=== PATIENT | male | born 1965 | race Caucasian/White ===

== ENCOUNTER 2018-05-28 04:32 | Observation (INO) ==
[2018-05-28] MEDS ORDERED: Ipratropium/Albuterol Neb 3 ML IH ONE (04:46)
[2018-05-28] MEDS ORDERED: Isovue-370 500 ML INFUS..BTL IV ONE (04:46)
[2018-05-28 05:17] LABS: Basophils % 0.4 %; Eosinophils # 0.2 K/mcL (0.0-0.6); Eosinophils % 2.5 %; Hemoglobin 15.9 g/dL (12.9-16.9); Immature Granulocytes % 0.5 % (0-4); Lymphocytes % 26.2 %; Mean Corpuscular Hemoglobin 32.5 pg (28.0-33.3); Mean Corpuscular Volume 87.9 fL (83.0-100.0); Mean Platelet Volume 10.4 fL (9.4-12.4); Monocytes # 0.7 K/mcL (0.0-1.3); Monocytes % 9.6 %; Neutrophils # 4.6 K/mcL (1.6-8.9); Platelet Count 177 K/mcL (140-400); Red Blood Count 4.89 M/mcL (4.19-5.50); Red Cell Distribution Width 12.9 % (11.5-14.5); Segmented Neutrophils % 60.8 %
--- NOTE | 2018-05-28 05:21 | Emergency Department Note ---
Disposition Clinical Impression: Elevated troponin, Cough with hemoptysis, Hypoxemia Dyspnea Qualifiers: Dyspnea type: unspecified Qualified Code(s): R06.00 - Dyspnea, unspecified Disposition: Admitted As Inpatient Condition: Fair Referrals: Grey Quispe DO [Primary Care Provider] - Forms: ED Satisfaction Letter Time of Disposition: 07:44 General Adult HPI - General Chief complaint: ED Shortness of Breath/Dyspnea Stated complaint: SoB Time Seen by Provider: 05/28/18 04:37 Source: EMS Limitations: no limitations - History of Present Illness Pain Scale: 7 - Related Data Allergies Allergy/AdvReac Type Severity Reaction Status Date / Time bee venom protein (honey bee) Allergy Anaphylaxis Verified 05/28/18 04:38 coconut AdvReac Hives Verified 05/28/18 04:37 [place] AdvReac Hives Verified 05/28/18 04:37 Past Medical History - Past Medical History Medical history: Reports: diabetes, GERD, hypertension Psychiatric history: Reports: no psych history - Social History Smoking Status: Never smoker Smokeless Tobacco Status: No Alcohol use: Reports: occasionally Drug use: Reports: none Physical Exam - General Limitations: no limitations General appearance: alert Course Vital Signs Temperature 98.9 F 05/28/18 04:38 Pulse Rate 87 05/28/18 04:38 Respiratory Rate 22 05/28/18 04:38 Blood Pressure 163/107 05/28/18 04:38 O2 Sat by Pulse Oximetry 91 05/28/18 04:38 Temperature 2 F L 05/28/18 06:51 Pulse Rate 95 05/28/18 06:58 Respiratory Rate 22 05/28/18 06:58 Blood Pressure 203/130 05/28/18 06:58 O2 Sat by Pulse Oximetry 94 05/28/18 06:58 Oxygen Delivery Oxygen Delivery Nasal Cannula Medical Decision Making - Lab Data Result diagrams: 05/28/18 05:00 05/28/18 05:00 Lab Results 05/28/18 05/28/18 05/28/18 Range/Units 05:00 05:00 05:00 WBC 7.6 (4.3-11.1) K/mcL RBC 4.89 (4.19-5.50) M/mcL Hgb 15.9 (12.9-16.9) g/dL Hct 43.0 (37.5-50.1) % MCV 87.9 (83.0-100.0) fL MCH 32.5 (28.0-33.3) pg MCHC 37.0 H (31.6-35.5) g/dL RDW 12.9 (11.5-14.5) % Plt Count 177 (140-400) K/mcL MPV 10.4 (9.4-12.4) fL Immature Gran % 0.5 (0-4) % Seg Neutrophils % 60.8 % Lymphocytes % 26.2 % Monocytes % 9.6 % Eosinophils % 2.5 % Basophils % 0.4 % Neutrophils # 4.6 (1.6-8.9) K/mcL Lymphocytes # 2.0 (0.6-4.6) K/mcL Monocytes # 0.7 (0.0-1.3) K/mcL Eosinophils # 0.2 (0.0-0.6) K/mcL Basophils # 0.0 (0.0-0.2) K/mcL PT (9.4-12.1) Seconds INR APTT (26.0-36.0) Seconds Sodium 138 (136-145) mEq/L Potassium 3.4 L (3.5-5.1) mEq/L Chloride 104 (98-107) mEq/L Carbon Dioxide 26 (23-29) mEq/L BUN 9 (6-20) mg/dL Creatinine 0.98 (0.70-1.30) mg/dL Est GFR ( Amer) > 60 (> 60) Est GFR (Non-Af Amer) > 60 (> 60) BUN/Creatinine Ratio 9 (6-26) Glucose 212 H (70-105) mg/dL Calculated Osmolality 291 (280-300) Lactic Acid 2.2 (0.5-2.2) mmol/L Calcium 9.2 (8.6-10.3) mg/dL Troponin I 0.05 H* (< 0.04) ng/mL B-Natriuretic Peptide (Less than 100) pg/mL 05/28/18 05/28/18 05/28/18 Range/Units 05:00 05:00 07:04 WBC (4.3-11.1) K/mcL RBC (4.19-5.50) M/mcL Hgb (12.9-16.9) g/dL Hct (37.5-50.1) % MCV (83.0-100.0) fL MCH (28.0-33.3) pg MCHC (31.6-35.5) g/dL RDW (11.5-14.5) % Plt Count (140-400) K/mcL MPV (9.4-12.4) fL Immature Gran % (0-4) % Seg Neutrophils % % Lymphocytes % % Monocytes % % Eosinophils % % Basophils % % Neutrophils # (1.6-8.9) K/mcL Lymphocytes # (0.6-4.6) K/mcL Monocytes # (0.0-1.3) K/mcL Eosinophils # (0.0-0.6) K/mcL Basophils # (0.0-0.2) K/mcL PT 11.3 (9.4-12.1) Seconds INR 1.0 APTT 26.6 (26.0-36.0) Seconds Sodium (136-145) mEq/L Potassium (3.5-5.1) mEq/L Chloride (98-107) mEq/L Carbon Dioxide (23-29) mEq/L BUN (6-20) mg/dL Creatinine (0.70-1.30) mg/dL Est GFR ( Amer) (> 60) Est GFR (Non-Af Amer) (> 60) BUN/Creatinine Ratio (6-26) Glucose (70-105) mg/dL Calculated Osmolality (280-300) Lactic Acid 1.8 (0.5-2.2) mmol/L Calcium (8.6-10.3) mg/dL Troponin I (< 0.04) ng/mL B-Natriuretic Peptide 42 (Less than 100) pg/mL Attestation Statement - Attestation Attestation: I, Jason Lozoya DO, examined this patient [id number] and my medical decision-making was reviewed with Sara Vines DO , Resident Physician. I agree with the documented findings, disposition and treatment plan as described except to the extent set forth below. Please see my progress notes for details. 52-year-old male presents to the emergency room by EMS for evaluation of acute onset of shortness of breath and hemoptysis. Patient was at home and felt like he had to call. He cleared sputum and mucus that have blood to her. He felt like it was almost entirely of blood. He denies any trauma or injury. Denies any history of lung cancer infectious etiology. Denied any chest pain shortness of breath headache vision changes nausea vomiting or diarrhea, fevers or chills prior to the events that brought him into the emergency room. The complaint at home was acute onset of coughing hemoptysis and shortness of breath. Patient does not have any specific cardiac history. He is mentating on his home medications. EMS found him to be hypoxic at 88% on arrival to the home. He is placed on oxygen and given breathing treatments. Patient is concerning for pulmonary versus cardiac related etiology. He is denying chest pain at this time. He has had on and off chest pain for the last 2-3 weeks. Patient has not traveled outside the country any prolonged immobilization at this point. He has no history of blood clots or recent surgeries. Because of the presentation of hypoxia with increased work of breathing patient will be given breathing treatments had a chest x-ray CT angiography the chest CBC chemistry EKG troponin and BNP ordered here in the emergency room. The initial EKG did not show any specific signs of ST segment elevation based on my review and comparison to the previous in 2004. The patient will have definitive management treatment established in the emergency room. Concern is noted for pulmonary related etiology secondary to the hypoxia and shortness of breath. See detailed documentation the physical exam, medical intervention, medical decision-making and disposition in the resident physician's note. No critical care provider the patient's treatment course at this time. Patient does have coarse crackles bilaterally on examination the lungs heart is regular no murmur noted. Abdomen is soft nontender nondistended. No pitting edema noted on exam. Patient does not appear to be in any specific distress outside of [place] does appear to be taking a little prolonged inspiration with breathing. 0545 Patient's troponin came back slightly elevated at 0.05. He still denies chest pain but just has the shortness of breath the came on acutely. The troponin dictated the repeat ECG. ECG was read by our new machines as possible ST segment elevation 23 aVF. Clinically does not show any specific ST segment elevation or reciprocal changes but we did run the EKG by the bricklayer sewer Dr. Donna Rivas. She currently does not appear to be diagnostic at this point the patient will be medically managed and evaluated further etiology including pulmonary emboli secondary to his presentation hypoxia shortness of breath and discomfort. Disposition pending the imaging modality patient will most of the be signed out to the daytime physician Dr. Gil. Definitive care management will be completed and admission process will be established. Patient was provided with an aspirin as well as breathing treatments here in the emergency room. Blood pressure was elevated on repeat evaluation we will confirm this with the patient returns and CT angiography and discuss nitroglycerin. 0700 CT angiography shows interstitial edema versus pneumonia. Antibiotics were ordered. Pulmonology was consulted to see the patient inpatient setting. Hospitalist was contacted for admission process to be completed secondary to hypoxia infiltrate and increased work of breathing. EKGs along with labs were reviewed in detail. Patient otherwise currently stable and will be admitted for definitive management.
[2018-05-28 05:22] LABS: Prothrombin Time 11.3 Seconds (9.4-12.1)
[2018-05-28 05:25] LABS: Activated Partial Thrombo Time 26.6 Seconds (26.0-36.0)
[2018-05-28 05:35] LABS: BUN/Creatinine Ratio 9 (6-26); Blood Urea Nitrogen 9 mg/dL (6-20); Calcium 9.2 mg/dL (8.6-10.3); Carbon Dioxide 26 mEq/L (23-29); Chloride 104 mEq/L (98-107); Glucose 212 mg/dL (70-105); Osmolality,Calculated 291 (280-300); Potassium 3.4 mEq/L (3.5-5.1); Sodium 138 mEq/L (136-145); eGFR For Non-African Americans > 60 (> 60)
[2018-05-28 05:39] LABS: Troponin I 0.05 ng/mL (< 0.04)
--- NOTE | 2018-05-28 05:42 | Emergency Department Note ---
Disposition Clinical Impression: Elevated troponin, Cough with hemoptysis, Hypoxemia Dyspnea Qualifiers: Dyspnea type: unspecified Qualified Code(s): R06.00 - Dyspnea, unspecified Disposition: Admitted As Inpatient Condition: Fair Referrals: Grey Quispe DO [Primary Care Provider] - Forms: ED Satisfaction Letter Time of Disposition: 07:32 General Adult HPI - General Stated complaint: SoB Time Seen by Provider: 05/28/18 04:37 Source: EMS Limitations: no limitations Nursing Notes Reviewed: Yes Vital Signs Reviewed: Yes - History of Present Illness HPI Narrative: Patient is a 52-year-old male who presents to [facility] ED with a chief complaint of shortness of breath. States he had a coughing episode just prior to his arrival here and states he tasted blood. When he spit it out was bright red blood. Since that time, he has been short of breath. Upon EMS arrival, he was saturating 88% on room air. He was placed on 2 L nasal cannula which brought him up to 91%. Denies any nausea, vomiting, fever or chills. No recent cough or cold. No abdominal pain, problems with urination or bowel movements. 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 Denies: chest pain, fever/chills, nausea/vomiting Treatments Prior to Arrival: none - Related Data Allergies Allergy/AdvReac Type Severity Reaction Status Date / Time bee venom protein (honey bee) Allergy Anaphylaxis Verified 05/28/18 04:38 [place] AdvReac Hives Verified 05/28/18 04:37 [place] AdvReac Hives Verified 05/28/18 04:37 All systems ED: reviewed and negative except as stated. Past Medical History - Past Medical History Attestation: Yes The following information was validated with the patient. Source: patient Medical history: Reports: diabetes, GERD, hypertension Psychiatric history: Reports: no psych history - Social History Smoking Status: Never smoker Smokeless Tobacco Status: No Alcohol use: Reports: occasionally Drug use: Reports: none Physical Exam - General Limitations: no limitations General appearance: alert - Head Head exam: atraumatic, normocephalic, normal inspection - Eye Eye exam: Present: EOMI - ENT ENT exam: normal exam, normal oropharynx, mucous membranes moist - Neck Neck exam: Present: normal inspection, full ROM, trachea midline - Chest Chest inspection: Present: normal inspection, symmetric chest wall rise - Respiratory Respiratory exam: Present: other (Diffuse rhonchi bilaterally) - Cardiovascular Cardiovascular exam: Present: regular rate, normal rhythm, normal heart sounds - Abdominal Exam Abdominal exam: Present: soft, Non-Tender. Absent: tenderness, distention, guarding, rebound, rigidity - Extremities Exam Extremities exam: Present: normal inspection, full ROM. Absent: tenderness, pedal edema - Neurological Exam Neurological exam: Present: alert, oriented X3 - Psychiatric Psychiatric exam: Present: normal affect, normal mood - Skin Skin exam: Present: warm, dry, intact, normal color Course Course Narrative: Patient seen and examined. Abrupt onset of shortness of breath with coughing up blood. Cardiopulmonary workup ordered. With concern for patient's sudden hypoxemia and shortness of breath, CTA of the chest ordered to evaluate for possible pulmonary embolus. - Reevaluation(s) Reevaluation #1: Patient's lab work shows signs of a mildly elevated troponin of 0.05. EKG was ordered which showed a slight minimal elevation of the ST segments in leads 2, 3 , aVF. This appeared to be visualized as well back on his EKG in 2004. However due to the current symptoms of chest pain as well as stroke elevation, we consulted the veneer clipper to look at the EKGs. She stated she would recommend a repeat EKG in about half an hour and then wait on the CT scan. She did not think that this was any significant STEMI. Still awaiting the CT scan results. Time: 06:47 Reevaluation #2: Repeat blood pressure improved after the nitroglycerin at systolic of 160s. CTA of the chest shows concern for interstitial and alveolar edema. With his symptoms of hemoptysis, there is concern for possible bronchoalveolar hemorrhage. I discussed these findings with the sales development manager Dr. Everett who will see the pt in consultation. I discussed with the hospitalist Dr. Woodall who has accepted patient for admission. Time: 07:32 Vital Signs Temperature 98.9 F 05/28/18 04:38 Pulse Rate 87 05/28/18 04:38 Respiratory Rate 22 05/28/18 04:38 Blood Pressure 163/107 05/28/18 04:38 O2 Sat by Pulse Oximetry 91 05/28/18 04:38 Temperature 2 F L 05/28/18 06:51 Pulse Rate 95 05/28/18 06:58 Respiratory Rate 22 05/28/18 06:58 Blood Pressure 203/130 05/28/18 06:58 O2 Sat by Pulse Oximetry 94 05/28/18 06:58 Oxygen Delivery Oxygen Delivery Nasal Cannula Medical Decision Making - Medical Records Medical records reviewed: Yes I reviewed the patient's medical records. - Lab Data Lab results reviewed: Yes I reviewed the patient's lab results. Result diagrams: 05/28/18 05:00 05/28/18 05:00 Lab Results 05/28/18 05/28/18 05/28/18 Range/Units 05:00 05:00 05:00 WBC 7.6 (4.3-11.1) K/mcL RBC 4.89 (4.19-5.50) M/mcL Hgb 15.9 (12.9-16.9) g/dL Hct 43.0 (37.5-50.1) % MCV 87.9 (83.0-100.0) fL MCH 32.5 (28.0-33.3) pg MCHC 37.0 H (31.6-35.5) g/dL RDW 12.9 (11.5-14.5) % Plt Count 177 (140-400) K/mcL MPV 10.4 (9.4-12.4) fL Immature Gran % 0.5 (0-4) % Seg Neutrophils % 60.8 % Lymphocytes % 26.2 % Monocytes % 9.6 % Eosinophils % 2.5 % Basophils % 0.4 % Neutrophils # 4.6 (1.6-8.9) K/mcL Lymphocytes # 2.0 (0.6-4.6) K/mcL Monocytes # 0.7 (0.0-1.3) K/mcL Eosinophils # 0.2 (0.0-0.6) K/mcL Basophils # 0.0 (0.0-0.2) K/mcL PT (9.4-12.1) Seconds INR APTT (26.0-36.0) Seconds Sodium 138 (136-145) mEq/L Potassium 3.4 L (3.5-5.1) mEq/L Chloride 104 (98-107) mEq/L Carbon Dioxide 26 (23-29) mEq/L BUN 9 (6-20) mg/dL Creatinine 0.98 (0.70-1.30) mg/dL Est GFR ( Amer) > 60 (> 60) Est GFR (Non-Af Amer) > 60 (> 60) BUN/Creatinine Ratio 9 (6-26) Glucose 212 H (70-105) mg/dL Calculated Osmolality 291 (280-300) Lactic Acid 2.2 (0.5-2.2) mmol/L Calcium 9.2 (8.6-10.3) mg/dL Troponin I 0.05 H* (< 0.04) ng/mL B-Natriuretic Peptide (Less than 100) pg/mL 05/28/18 05/28/18 05/28/18 Range/Units 05:00 05:00 07:04 WBC (4.3-11.1) K/mcL RBC (4.19-5.50) M/mcL Hgb (12.9-16.9) g/dL Hct (37.5-50.1) % MCV (83.0-100.0) fL MCH (28.0-33.3) pg MCHC (31.6-35.5) g/dL RDW (11.5-14.5) % Plt Count (140-400) K/mcL MPV (9.4-12.4) fL Immature Gran % (0-4) % Seg Neutrophils % % Lymphocytes % % Monocytes % % Eosinophils % % Basophils % % Neutrophils # (1.6-8.9) K/mcL Lymphocytes # (0.6-4.6) K/mcL Monocytes # (0.0-1.3) K/mcL Eosinophils # (0.0-0.6) K/mcL Basophils # (0.0-0.2) K/mcL PT 11.3 (9.4-12.1) Seconds INR 1.0 APTT 26.6 (26.0-36.0) Seconds Sodium (136-145) mEq/L Potassium (3.5-5.1) mEq/L Chloride (98-107) mEq/L Carbon Dioxide (23-29) mEq/L BUN (6-20) mg/dL Creatinine (0.70-1.30) mg/dL Est GFR ( Amer) (> 60) Est GFR (Non-Af Amer) (> 60) BUN/Creatinine Ratio (6-26) Glucose (70-105) mg/dL Calculated Osmolality (280-300) Lactic Acid 1.8 (0.5-2.2) mmol/L Calcium (8.6-10.3) mg/dL Troponin I (< 0.04) ng/mL B-Natriuretic Peptide 42 (Less than 100) pg/mL - Radiology Data Radiology results reviewed: Yes I reviewed the patient's radiology results. Chest X-Ray 05/28/18 04:47 IMPRESSION: Airway thickening and airspace disease could reflect asymmetric pulmonary edema, aspiration or pneumonia. D/ / Yared Schulz / Yared Schulz Interpreting Provider: Yared Schulz - EKG Data EKG #1 EKG attestation: Yes I reviewed and interpreted this EKG. EKG results narrative: EKG done at 445 shows normal sinus rhythm with a rate of [address] elevation or depression noted. EKG done at 543 shows normal sinus rhythm with a rate of [address] elevation noted in leads 2, 3, aVF by approximately 0.5 mm to 1 mm. It appears that this may have been present in the old EKG as well on 05/18/2005. We will discuss with veneer clipper. Attestation Statement - Attestation Attestation: I, Jason Lozoya DO, examined this patient [id number] and my medical decision-making was reviewed with Dr. Sara Vines, Resident Physician. I agree with the documented findings, disposition and treatment plan as described except to the extent set forth below. Please see my progress notes for details.
[2018-05-28] MEDS ORDERED: Aspirin 325 MG TABLET PO ONE (05:56)
[2018-05-28] MEDS: Nitroglycerin 0.4 MG TAB.SUBL SL PRN ×3 (06:41→06:55)
[2018-05-28] MEDS ORDERED: Naloxone 0.4 MG/ML INJ IVP PRN (07:53)
[2018-05-28] MEDS ORDERED: Acetaminophen 325 MG TABLET PO PRN (07:53)
[2018-05-28] MEDS ORDERED: D5% in Water 1,000 ML IVC PRN (07:57)
[2018-05-28] MEDS ORDERED: *HR* Dextrose 50 % in Water (Syg) 50 ML SYRINGE IVP PRN (07:57)
[2018-05-28] MEDS ORDERED: Dextrose Gel 15 GM/37.5 ML TUBE PO PRN ×2 (07:57)
[2018-05-28] MEDS ORDERED: Ipratropium/Albuterol Neb 3 ML IH PRN (07:58)
--- NOTE | 2018-05-28 08:03 | Internal Med History&Physical ---
Date of Encounter: 05/28/18 Time of Encounter: 07:20 Internal Medicine - H&P: HPI Chief complaint: Hemoptysis Admitted From: Home Plans for Post Hospital Care: Home History of present illness: Mr. Tripp is a 52 year old male presented to ER for hemoptysis. Past medical history is significant for hypertension and diabetes. Patient has sudden onset of severe cough during eating at 3:20am. He found blood in the sputum, which is bright red blood. Patient has difficult breathing and wheezing after hemoptysis. Patient was sent to ER and was treated with DuoNeb. Patient was suspected PE and CTA has been done, which is negative for PE but shows interstitial and alveolar edema. Patient denies immobilization, recent surgery, or recent travel. He is generally active and keep working recently. Patient has hypertension on losartan but he said he did not take medications for 2 days. Patient has suspected ST elevation on EKG, EKG was sent to cardiology by ER physician and reviewed by cardiology, no further treatment recommended. Patient was admitted for hemoptysis, pulmonary consult was called by emergency room. Past Med Surg Social Fam HX - Past Medical History Medical history: diabetes, GERD, hypertension Psychiatric history: no psych history - Past Surgical History Additional surgical history: back surgery, right hand, - Social History Smoking Status: Never smoker Smokeless Tobacco Status: No Alcohol use: occasionally Drug use: none - Family History Mother History Unknown: Yes Internal Medicine - H&P: Meds 3 Allergy/AdvReac Type Severity Reaction Status Date / Time bee venom protein (honey bee) Allergy Anaphylaxis Verified 05/28/18 04:38 [place] AdvReac Hives Verified 05/28/18 04:37 [place] AdvReac Hives Verified 05/28/18 04:37 All Systems PM: A 10-system review of systems was performed and is negative for pertinent findings except as documented above in the HPI. - Constitutional Vitals: Temp Pulse Resp BP Pulse Ox 2 F L 95 22 203/130 94 05/28/18 06:51 05/28/18 06:58 05/28/18 06:58 05/28/18 06:58 05/28/18 06:58 General appearance: Present: A&O X 3, pleasant, no acute distress, answers questions appropriately - Head Head exam: Present: atraumatic, normocephalic - Eye Eye exam: Present: PERRL, conjuntiva pink, sclera anicteric Pupils: Present: PERRL - Neck Neck exam general surgery: Present: supple, trachea midline. Absent: lymphadenopathy - Respiratory Respiratory exam: Present: CTAB. Absent: accessory muscle use, rales, rhonchi, wheezes - Cardiovascular Cardiovascular exam: Present: RRR, +S1, +S2. Absent: diastolic murmur, gallop, rubs, systolic murmur - GI/Abdominal GI/Abdominal exam: Present: normal bowel sounds, soft, no peritoneal signs. Absent: distended, tenderness - Extremities Exam Extremities exam: Present: warm, radial pulses palpable and symmetrical. Absent : calf tenderness, cyanotic, pedal edema - Neurological Exam Neurological exam: Present: CN II-XII intact, oriented X3, no focal deficits. Absent: pronater drift, facial droop, speech deficit - Skin Skin exam: Present: dry, intact Internal Med - H&P Results - Labs CBC & Chem 7: 05/28/18 05:00 05/28/18 05:00 Labs: Short CBC 05/28/18 Range/Units 05:00 WBC 7.6 (4.3-11.1) K/mcL Hgb 15.9 (12.9-16.9) g/dL Hct 43.0 (37.5-50.1) % Plt Count 177 (140-400) K/mcL Neutrophils # 4.6 (1.6-8.9) K/mcL BMP 05/28/18 05:00 Sodium 138 Potassium 3.4 L Chloride 104 Carbon Dioxide 26 BUN 9 Creatinine 0.98 Glucose 212 H Calcium 9.2 Cardiac Enzymes 05/28/18 Range/Units 05:00 Troponin I 0.05 H* (< 0.04) ng/mL - Impressions ITS Impressions Chest X-Ray 05/28/18 04:47 IMPRESSION: Airway thickening and airspace disease could reflect asymmetric pulmonary edema, aspiration or pneumonia. D/ / Yared Schulz / Yared Schulz Interpreting Provider: Yared Schulz Chest CTA 05/28/18 04:49 IMPRESSION: Negative for acute pulmonary embolism. Bilateral airspace disease most consistent with interstitial and alveolar edema. Infectious process less favored. D/ / Yared Schulz / Yared Schulz Interpreting Provider: Yared Schulz - Assessment and plan (1) Hypertensive urgency Current Visit: Yes Status: Acute Assessment and plan: Due to noncompliant to medication. Restart losartan 50 mg by mouth daily. Closely monitor BP. (2) Diabetes mellitus Current Visit: Yes Status: Acute Assessment and plan: Patient takes metformin at home. Will place patient on sliding scale insulin coverage. Qualifiers: Diabetes mellitus type: type 2 Diabetes mellitus fpc insulin use: without long term care pharmacist use Diabetes mellitus complication status: without complication Qualified Code(s): E11.9 - Type 2 diabetes mellitus without complications (3) Dyspnea Current Visit: Yes Status: Acute Assessment and plan: Etiology is undetermined. CTA shows interstitial and alveolar lung edema. Will give patient 1 dose of steroid, DuoNeb when necessary. Pulmonology consult. Qualifiers: Dyspnea type: shortness of breath Qualified Code(s): R06.02 - Shortness of breath; R06.00 - Dyspnea, unspecified; R06.01 - Orthopnea (4) Elevated troponin Current Visit: Yes Status: Acute Assessment and plan: EKG has been reviewed by cardiology, unremarkable. Mild elevated troponin, suspect demand ischemia. - Continue cardiac monitoring - Track totally 3 sets of troponin (5) Cough with hemoptysis Current Visit: Yes Status: Acute Assessment and plan: Etiology is undetermined. CTA negative for PE. - Continue cardiac and pulmonary monitoring. - 1 dose of Solu-Medrol - Pulmonology consult - Keep nothing by mouth at this point in case pulmonology procedure needed. - Symptomatic treatment with DuoNeb and cough syrup as needed. (6) KELBY (obstructive sleep apnea) Current Visit: Yes Status: Acute Assessment and plan: Patient was prescribed CPAP but not started using it yet. Place patient on CPAP during night if he can tolerate. Otherwise keep nasal cannula oxygen and continuous pulse oximetry monitoring. - Time Spent With Patient Total time spent is greater than 50% in coordination of care (as documented) at patient's floor/unit and/or counseling patient: 30 minutes 25 - 35 minutes
[2018-05-28] MEDS ORDERED: methylPREDNISolone 125 MG/2 ML VIAL IVP ONE (08:04)
--- NOTE | 2018-05-28 08:18 | Pulmonology Consult Note ---
<ZaraGary W - Last Filed: 05/28/18 10:53> Date of Encounter: 05/28/18 Medications and Allergies 3 Allergy/AdvReac Type Severity Reaction Status Date / Time bee venom protein (honey bee) Allergy Anaphylaxis Verified 05/28/18 04:38 coconut AdvReac Hives Verified 05/28/18 04:37 [place] AdvReac Hives Verified 05/28/18 04:37 All Systems: The remainder of the systems were reviewed and are negative Physical Examination Vital Signs: Vital Signs, Last 4 Hours Temp Pulse Resp BP Pulse Ox 05/28/18 09:15 97.9 F 81 15 158/95 93 05/28/18 08:35 15 172/108 05/28/18 08:28 85 18 172/108 95 Results - Laboratory Findings CBC and BMP: 05/28/18 05:00 05/28/18 05:00 PT/INR, D-dimer PT 11.3 Seconds (9.4-12.1) 05/28/18 05:00 Abnormal lab findings: Abnormal lab results MCHC 37.0 g/dL (31.6-35.5) H 05/28/18 05:00 Potassium 3.4 mEq/L (3.5-5.1) L 05/28/18 05:00 Glucose 212 mg/dL (70-105) H 05/28/18 05:00 Troponin I 0.05 ng/mL (< 0.04) H* 05/28/18 05:00 - Clinical Findings Intake & Output: Intake & Output 05/27/18 05/28/18 05/28/18 23:59 07:59 15:59 Intake Total 0 / 0 Balance 0 / 0 Weight 128.2 kg Consult Discharge Plan - Plan Referrals: Grey Quispe DO [Primary Care Provider] - - Attending Attestation I examined this patient and my medical decision-making was reviewed with the Resident Physician. I agree with the documented findings, disposition and treatment plan as described except to the extent set forth below. We independently had [id number] contact with the patient Patient seen and examined at bedside Labs, radiology, chart personally reviewed. Impression: Minor Hemopytysis suspected secondary to hypertensive heart disease with hydrostatic pulmonary edema less likely inflammatory process such as diffuse alveolar hemorrhage or respiratory infectious process Accelerated HTN KELBY: Recs: -Keep nothing by mouth for now recommend echocardiogram and cardiac evaluation monitor amount of expectorated blood if greater than 250 mL at any one time or 500 mL in 24 hours would move to ICU. Keep nothing by mouth at midnight for planned bronchoscopy We will send inflammatory serologies and infectious workup A bronchoscopy is recommended. The procedure , risks, benefits, complications, and expected outcomes have been reviewed. Benefits of diagnosis, as well as risks to include bleeding, infection, pneumothorax which may require surgical intervention, and in a small population. The patient is aware that sometimes test is nondiagnostic. Discussed with patient and agrees to proceed. -BP management per primary service consider cardiology consult -Continue CPAP at night patient encouraged to have his the significant other bring in his machine and he will need outpatient follow-up for this <Doroteo De Paz - Last Filed: 05/28/18 11:19> Date of Encounter: 05/28/18 Time of Encounter: 10:48 Assessment and Plan (1) Cough with hemoptysis Current Visit: Yes Status: Acute Patient with acute onset minor hemoptysis, suspected secondary to hypertensive heart disease with hydrostatic pulmonary edema Differentials include inflammatory or infectious process, cancer or malignancy Patient does not have smoking history or other signs of malignancy, CTA negative for tumor or nodule, cancer unlikely Nonsuspicious for infectious process however we will order respiratory panel as well as cultures to rule out This is most likely a manifestation of hypertensive urgency due to some underlying cardiac etiology We will order echocardiogram to evaluate cardiac status, recommend considering cardiology consultation Recommend continuing DuoNeb and oxygen supportive care Plan for diagnostic bronchoscopy with BAL tomorrow, procedure, risks, benefits discussed with patient, keep nothing by mouth Hemoptysis output should be recorded and if greater than 250 mL at once or 500 mL over 24 hours patient should be moved to ICU Considering inflammatory etiology we will order inflammatory markers to rule out as well Patient is currently ventilating and oxygenating appropriately on 2 L nasal cannula clinic, clinical condition stable, we will continue to monitor (2) Dyspnea Current Visit: Yes Status: Acute Patient does complain of some dyspnea/shortness of breath, however he claims it has greatly improved since the onset of his symptoms He is currently ventilating and oxygenating appropriately on 2 L nasal cannula, recommend continuing this Qualifiers: Dyspnea type: shortness of breath Qualified Code(s): R06.02 - Shortness of breath; R06.00 - Dyspnea, unspecified; R06.01 - Orthopnea (3) Hypertensive urgency Current Visit: Yes Status: Acute Patient has a history of hypertension that has in the past been well controlled on with losartan He states that he did not take his losartan for the last 2 days and this could be contributing to his hypertensive urgency at this time We will defer to the primary management team to intervene on this patient's blood pressure History of Present Illness Consult date: 05/28/18 Requesting physician: Sara Vines Reason for consult: other (Hemoptysis) Chief complaint: Hemoptysis History of present illness: Mr. Tripp is a pleasant 52-year-old man with a past medical history of diabetes mellitus, reflux, hypertension for which he takes metformin, losartan, Zantac. He presented to the ED this morning with a complaint of hemoptysis. Apparently he got off work at around 1 AM he made himself a meal and then was sitting watching TV when he started coughing for no apparent reason. He claims that he started coughing bright red blood into his hand overall he estimates he coughed up up out a cupful of bright red blood, then it transitioned to pink frothy sputum which she coughed up about another 2 cupfuls. He denied any other associated symptoms during this episode of coughing other than shortness of breath and wheeze. He presented to the emergency department where he was treated with IV steroids a DuoNeb breathing treatment and nasal oxygen. In the ED he was found to be in hypertensive urgency as well. EKG was found to have some nonspecific ST changes, cardiology was consultation who recommended no intervention at this time. Chest CTA was also performed which showed no pulmonary embolism but did show bilateral patchy groundglass opacities. Troponin was found to be mildly elevated at 0.05. At the time of my exam he states that he feels much better than he did earlier this morning. In terms of social history he denies smoking or drug use but does confirm 5-6 beers on the weekend. He does not have a history of pulmonary disease other than an episode of pneumonia when he was 7 years old, he denies any previous diagnosis of asthma. He denies any occupational exposure to fumes or dusts, he lives in an apartment that is old but has been renovated and he does not have suspicion for mold. He lives part-time with his girlfriend who has pets but he does not have pets at home. He denies any trauma to his chest wall. He does state that he has had some intermittent chest pain over the last month but it has not been investigated. He denies any coughing prior to this episode. He is up-to-date on immunizations in addition to particular vaccinations he got in the for spending time [place] in [place]. He denies any night sweats, fever, chills, weight loss. He denies any lower extremity edema, or shortness of breath prior to this episode. Past Med Surg Social Fam HX - Past Medical History Medical history: diabetes, GERD, hypertension Psychiatric history: no psych history - Past Surgical History Additional surgical history: back surgery, right hand, - Social History Smoking Status: Never smoker Smokeless Tobacco Status: No Alcohol use: occasionally Drug use: none - Family History Mother History Unknown: Yes All Systems: The remainder of the systems were reviewed and are negative Review of Systems: Denies fever, chills, abdominal pain, nausea, vomiting, headache, swelling, confusion, lightheadedness or syncope He endorses some shortness of breath, chest pain that has been chronic Physical Examination Vital Signs: Patient in no acute distress alert and oriented 3 Skin warm and dry Neck supple no JVD Heart regular rate and rhythm without gallop or murmur Diffuse crackles on lung exam, no wheeze or rhonchi, no diminished lung sounds Abdomen soft and nontender no organomegaly bowel sounds normal Legs nonedematous Results - Laboratory Findings CBC and BMP: 05/28/18 05:00 05/28/18 05:00 PT/INR, D-dimer PT 11.3 Seconds (9.4-12.1) 05/28/18 05:00 Abnormal lab findings: Abnormal lab results MCHC 37.0 g/dL (31.6-35.5) H 05/28/18 05:00 Potassium 3.4 mEq/L (3.5-5.1) L 05/28/18 05:00 Glucose 212 mg/dL (70-105) H 05/28/18 05:00 Troponin I 0.05 ng/mL (< 0.04) H* 05/28/18 05:00
[2018-05-28] MEDS: Insulin LISPRO 300 UNITS/3 ML VIAL SQ SCH ×3 (10:25→20:37)
[2018-05-28 15:22] LABS: Adenovirus Not Detected (Not Detect); Bordetella Pertussis Not Detected (Not Detect); Chlamydophila pneumoniae Not Detected (Not Detect); Coronavirus 229E Not Detected (Not Detect); Coronavirus HKU1 Not Detected (Not Detect); Coronavirus NL63 Not Detected (Not Detect); Coronavirus OC43 Not Detected (Not Detect); Human Metapneumovirus Not Detected (Not Detect); Human Rhinovirus/Enterovirus Not Detected (Not Detect); Influenza A Subtype 2009 H1 Not Detected (Not Detect); Influenza A Untypeable Not Detected (Not Detect); Influenza B Not Detected (Not Detect); Mycoplasma pneumoniae Not Detected (Not Detect); Parainfluenza Virus 1 Not Detected (Not Detect); Parainfluenza Virus 2 Not Detected (Not Detect); Parainfluenza Virus 3 Not Detected (Not Detect); Parainfluenza Virus 4 Not Detected (Not Detect); Respiratory Syncytial Virus Not Detected (Not Detect)
--- NOTE | 2018-05-28 17:23 | Electrocardiograph Report ---
[place] [id number] Test Date: 2018-05-28 Pat Name: Isiah Tripp Department: Room: 3B34 Gender: Generation Manager: : 1965 Requested By: Jason Lozoya Order Number: [id number] Reading MD: Sherrie Borja Measurements Intervals [place] Rate: 86 P: 9 [place]: 191 QRS: -81 QRSD: 108 T: 64 QT: 387 QTc: 463 Interpretive Statements Sinus rhythm Left anterior fascicular block Probable anteroseptal infarct, old Electronically Signed On 05-28-2018 17:22:17 EDT by Sherrie Borja
--- NOTE | 2018-05-28 17:24 | Electrocardiograph Report ---
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
[2018-05-29 05:53] LABS: Hematocrit 42.4 % (37.5-50.1); Hemoglobin 15.5 g/dL (12.9-16.9); Immature Granulocytes % 0.6 % (0-4); Mean Corpuscular HGB Conc 36.6 g/dL (31.6-35.5); Mean Corpuscular Hemoglobin 32.6 pg (28.0-33.3); Mean Corpuscular Volume 89.3 fL (83.0-100.0); Mean Platelet Volume 10.7 fL (9.4-12.4); Monocytes % 7.7 %; Platelet Count 177 K/mcL (140-400); Red Blood Count 4.75 M/mcL (4.19-5.50); Segmented Neutrophils % 79.6 %
[2018-05-29 05:54] LABS: Basophils % 0.1 %; Lymphocytes # 1.9 K/mcL (0.6-4.6); Monocytes # 1.2 K/mcL (0.0-1.3); Neutrophils # 12.7 K/mcL (1.6-8.9)
[2018-05-29 05:58] LABS: INR 1.1; Prothrombin Time 11.9 Seconds (9.4-12.1)
[2018-05-29 06:17] LABS: BUN/Creatinine Ratio 19 (6-26); Blood Urea Nitrogen 16 mg/dL (6-20); Calcium 9.5 mg/dL (8.6-10.3); Carbon Dioxide 23 mEq/L (23-29); Chloride 106 mEq/L (98-107); Glucose 257 mg/dL (70-105); Osmolality,Calculated 294 (280-300); Potassium 4.3 mEq/L (3.5-5.1); Sodium 137 mEq/L (136-145); eGFR For Non-African Americans > 60 (> 60)
[2018-05-29] MEDS ORDERED: Lidocaine Viscous Oral Soln 15 ML SOLUTION MM ONE (06:41)
[2018-05-29] MEDS ORDERED: *HR* FentaNYL (PF) 100 MCG/2 ML VIAL IVP ONE (06:41)
[2018-05-29] MEDS ORDERED: *HR* Midazolam HCl 5 MG/5 ML VIAL IVP ONE ×2 (06:41→09:17)
[2018-05-29] MEDS ORDERED: *HR* EPINEPHrine 1 MG/10 ML SYRINGE INTRATRACH PRN (06:41)
[2018-05-29] MEDS ORDERED: Tetracaine/Benzocaine/Butamben 200MG/SPRAY (100SPY/BOT) MM ONE (06:41)
--- NOTE | 2018-05-29 06:41 | Pre-Sedation Evaluation ---
Pre-sedation evaluation - Pre-sedation checklist Date of procedure: 05/29/18 Procedure: Bronchoscopy Recent Vitals: Last Vital Signs Temp 97.9 F 05/29/18 03:44 Pulse 66 05/29/18 03:44 Resp 16 05/29/18 03:44 BP 157/75 05/29/18 03:44 Pulse Ox 100 05/29/18 03:44 H&P (including ROS) documented in medical record: Yes Previous reaction to sedatives/anesthetics: No Dietary Status: NPO after Midnight Airway Assessment: Patient can open mouth completely, TMJ function normal Dentition: No loose teeth or bridges Possible difficult airway: Yes If Yes;: History of Obstructive Sleep Apnea, Enlarged neck circumference, short neck ASA Classification *see protocol: CLASS II-Mild systemic disease Plan of Care: Pt appropriate candidate for procedure/moderate/conscious sedation , Risks/benefits of procedure/sedation discussed w/ patient/family Cardiac Registry (Cardio Only) - Functional Capacity - Clincal Frailty Scale
--- NOTE | 2018-05-29 07:54 | Pulmonology Progress Note ---
Date of Encounter: 05/29/18 Time of Encounter: 07:54 Assessment and Plan (1) Cough with hemoptysis Current Visit: Yes Status: Acute Minor hemoptysis, Cause unknown at this time, possibly related to hypertension and hydrostatic pulmonary edema. Inflammatory process including underlying rheumatologic lung disease, diffuse alveolar hemorrhage, or respiratory infectious process are also considered. Patient has not had any hemoptysis since yesterday afternoon. Workup thus far is unremarkable with negative rheumatoid factor and CRP, as well as negative respiratory infection panel. Patient does have an increase in his leukocytosis today however no signs of infection and this may be a stress response in the setting of some hemoptysis. Plan today is for bronchoscopy for airway inspection and BAL. Pending the findings of bronchoscopy patient remains stable we can likely be discharged afternoon with outpatient pulmonary follow-up. (2) Hypoxemia Current Visit: Yes Status: Acute Likely related to hemoptysis as discussed above. Patient is currently 97% on 3 L, wean oxygen as tolerated to maintain an oxygen saturation greater than 89%. (3) KELBY (obstructive sleep apnea) Current Visit: Yes Status: Acute Recommend CPAP at night Subjective Principal diagnosis: Hemoptysis Interval history: Patient seen and examined at bedside. Patient states that he feels pretty good this morning. He reports he last coughed up some blood yesterday afternoon, nothing overnight. He was unable to bring his CPAP machine from home so he did not wear CPAP overnight. Denies shortness of breath, cough. Objective PUL Vital signs: Last Vital Signs Temp 97.9 F 05/29/18 06:46 Pulse 64 05/29/18 06:46 Resp 16 05/29/18 06:46 BP 123/74 05/29/18 06:46 Pulse Ox 97 05/29/18 06:46 General appearance: no acute distress ENT: oropharynx moist Effort: normal Auscultation: bilateral: clear Cardiovascular: regular rate and rhythm Gastrointestinal: normoactive bowel sounds, soft, non-tender Extremities: no cyanosis, no edema, no clubbing normal mental status, non-focal exam Results - Laboratory Findings CBC and BMP: 05/29/18 05:21 05/29/18 05:21 PT/INR, D-dimer PT 11.9 Seconds (9.4-12.1) 05/29/18 05:21 Abnormal lab findings: Abnormal lab results WBC 16.0 K/mcL (4.3-11.1) H D 05/29/18 05:21 MCHC 36.6 g/dL (31.6-35.5) H 05/29/18 05:21 Neutrophils # 12.7 K/mcL (1.6-8.9) H 05/29/18 05:21 Glucose 257 mg/dL (70-105) H 05/29/18 05:21 POC Glucose 310 mg/dL (70-99) H 05/28/18 20:16 Troponin I 0.05 ng/mL (< 0.04) H* 05/28/18 16:03 - Microbiology Findings Microbiology Findings: Microbiology, Last 48 Hours 05/28/18 12:50 Sputum Culture - Preliminary Sputum - Clinical Findings Intake & Output: Intake & Output 05/28/18 05/28/18 05/29/18 15:59 23:59 07:59 Intake Total 0 / 0 Balance 0 / 0 Weight 128.2 kg 127.3 kg Consult Discharge Plan - Plan Referrals: Grey Quispe, [Primary Care Provider] -
[2018-05-29] MEDS ORDERED: *HR* FentaNYL (PF) 100 MCG/2 ML VIAL ONE (09:17)
[2018-05-29] MEDS ORDERED: Lidocaine Viscous Oral Soln 15 ML SOLUTION ONE (09:17)
[2018-05-29] MEDS: Insulin LISPRO 300 UNITS/3 ML VIAL SQ SCH ×4 (11:12→20:19)
[2018-05-29] MEDS ORDERED: OXYCODONE Oral CONC 10 MG/0.5 ML ORAL.SYG SL PRN (13:00)
--- NOTE | 2018-05-29 16:34 | Internal Med Progress Note ---
Hospitalist Progress Note - Encounter Date of Encounter: 05/29/18 Time of Encounter: 16:25 - Subjective Interval History: Patient seen and examined a bedside He underwent a bronchoscopy this am for hemoptysis He is complaining of pleuritic CP small amount of blood tinge sputum. He and his significant other voices concern about going home. - Exam Vitals: Temp Pulse Resp BP Pulse Ox 97.9 F 76 16 138/94 94 05/29/18 10:14 05/29/18 10:14 05/29/18 10:14 05/29/18 10:14 05/29/18 10:14 Exam: General appearance: Present: A&O X 3, pleasant, no acute distress, answers questions appropriately - Head Head exam: Present: atraumatic, normocephalic - Eye Eye exam: Present: PERRL, conjuntiva pink, sclera anicteric Pupils: Present: PERRL - Neck Neck exam general surgery: Present: supple, trachea midline. Absent: lymphadenopathy - Respiratory Respiratory exam: Present: CTAB. Absent: accessory muscle use, rales, rhonchi, wheezes - Cardiovascular Cardiovascular exam: Present: RRR, +S1, +S2. Absent: diastolic murmur, gallop, rubs, systolic murmur - GI/Abdominal GI/Abdominal exam: Present: normal bowel sounds, soft, no peritoneal signs. Absent: distended, tenderness - Extremities Exam Extremities exam: Present: warm, radial pulses palpable and symmetrical. Absent : calf tenderness, cyanotic, pedal edema - Neurological Exam Neurological exam: Present: CN II-XII intact, oriented X3, no focal deficits. Absent: pronater drift, facial droop, speech deficit - Skin Skin exam: Present: dry, intact - Assessment and Plan (1) Dyspnea Current Visit: Yes Status: Acute Assessment and Plan: Etiology is undetermined. CTA shows interstitial and alveolar lung edema. No PE Pulmonology consulted.- pulmonology suspect rt HTN and hydrostatic pulmonary edema- wean oxygen (2) Elevated troponin Current Visit: Yes Status: Acute Assessment and Plan: EKG has been reviewed by cardiology, unremarkable. Mild elevated troponin on presentation, suspect demand ischemia. - Continue cardiac monitoring - Track totally 3 sets of troponin- which are flat (3) Cough with hemoptysis Current Visit: Yes Status: Acute Assessment and Plan: Etiology is undetermined. CTA negative for PE. - Continue cardiac and pulmonary monitoring. - 1 dose of Solu-Medrol - Pulmonology consult- underwent bronchoscopy todat with BAL washing cytology sent - Has small amount of blood tinged sputum - Symptomatic treatment with DuoNeb and cough syrup as needed. (4) Hypertensive urgency Current Visit: Yes Status: Acute Assessment and Plan: Due to noncompliant to medication. Closely monitor BP Give home dose oflosartan now since patient has been NPO- monitor overnight We will monitor overnight give hydralazine PRN . (5) Diabetes mellitus Current Visit: Yes Status: Acute Assessment and Plan: Patient takes metformin at home. Will place patient on sliding scale insulin coverage. monitor accucheck AC/HS diabetic diet (6) KELBY (obstructive sleep apnea) Current Visit: Yes Status: Acute Assessment and Plan: Patient was prescribed CPAP but not started using it yet. Place patient on CPAP during night if he can tolerate. Otherwise keep nasal cannula oxygen and continuous pulse oximetry monitoring. DVT Prophylaxis: SCD - Time Spent with Patient Total time spent is greater than 50% in coordination of care (as documented) at patient's floor/unit and/or counseling patient: Internal Medicine: Result - Labs CBC & Chem 7: 05/29/18 05:21 05/29/18 05:21 Labs: Short CBC 05/29/18 Range/Units 05:21 WBC 16.0 H D (4.3-11.1) K/mcL Hgb 15.5 (12.9-16.9) g/dL Hct 42.4 (37.5-50.1) % Plt Count 177 (140-400) K/mcL Neutrophils # 12.7 H (1.6-8.9) K/mcL BMP 05/29/18 05:21 Sodium 137 Potassium 4.3 Chloride 106 Carbon Dioxide 23 BUN 16 Creatinine 0.86 Glucose 257 H Calcium 9.5 Cardiac Enzymes 05/28/18 Range/Units 16:03 Troponin I 0.05 H* (< 0.04) ng/mL - ABG Interpretation ABG results: PT/INR, D-dimer PT 11.9 Seconds (9.4-12.1) 05/29/18 05:21 - Impressions Impressions Chest X-Ray 05/29/18 06:39 IMPRESSION: Lingular and bibasilar airspace opacities have improved, suggesting improving edema or pneumonia. D/ / 05/29/2018 07:48:16 Ronnell Ayala MD / [place] Interpreting Provider: Ronnell Ayala MD Consult Discharge Plan - Plan Referrals: Grey Quispe DO [Primary Care Provider] - (1) Dyspnea Qualifiers: Dyspnea type: shortness of breath Qualified Code(s): R06.02 - Shortness of breath; R06.00 - Dyspnea, unspecified; R06.01 - Orthopnea (5) Diabetes mellitus Qualifiers: Diabetes mellitus type: type 2 Diabetes mellitus prison insulin use: without tank terminal gauger use Diabetes mellitus complication status: without complication Qualified Code(s): E11.9 - Type 2 diabetes mellitus without complications
[2018-05-29] MEDS: *HR* OxyCODONE/APAP 5/325 TABLET PO PRN (18:23)
[2018-05-30] MEDS: *HR* OxyCODONE/APAP 5/325 TABLET PO PRN ×2 (03:08→10:42)
[2018-05-30 05:17] LABS: Basophils % 0.2 %; Eosinophils # 0.1 K/mcL (0.0-0.6); Hematocrit 39.5 % (37.5-50.1); Hemoglobin 14.2 g/dL (12.9-16.9); Immature Granulocytes % 0.5 % (0-4); Lymphocytes # 2.7 K/mcL (0.6-4.6); Lymphocytes % 28.3 %; Mean Corpuscular HGB Conc 35.9 g/dL (31.6-35.5); Mean Corpuscular Hemoglobin 32.9 pg (28.0-33.3); Mean Corpuscular Volume 91.4 fL (83.0-100.0); Mean Platelet Volume 10.7 fL (9.4-12.4); Monocytes # 0.9 K/mcL (0.0-1.3); Monocytes % 9.4 %; Neutrophils # 5.7 K/mcL (1.6-8.9); Platelet Count 149 K/mcL (140-400); Red Blood Count 4.32 M/mcL (4.19-5.50); Red Cell Distribution Width 13.2 % (11.5-14.5); Segmented Neutrophils % 60.6 %
[2018-05-30] MEDS: Ringers Solution, Lactated 1,000 ML IVC SCH (07:23)
[2018-05-30 07:28] LABS: BUN/Creatinine Ratio 18 (6-26); Blood Urea Nitrogen 18 mg/dL (6-20); Calcium 8.6 mg/dL (8.6-10.3); Carbon Dioxide 27 mEq/L (23-29); Chloride 103 mEq/L (98-107); Glucose 263 mg/dL (70-105); Osmolality,Calculated 297 (280-300); Potassium 3.5 mEq/L (3.5-5.1); Sodium 138 mEq/L (136-145); eGFR For Non-African Americans > 60 (> 60)
[2018-05-30] MEDS: Insulin LISPRO 300 UNITS/3 ML VIAL SQ SCH (08:00)
--- NOTE | 2018-05-30 08:17 | Event Note ---
Date of Encounter: 05/30/18 Time of Encounter: 08:05 Mr. Tripp was lying comfortably in bed this morning he states that his pain is being moderately controlled with his pain medication. He feels that he is improved from yesterday. He had minimal hemoptysis yesterday evening and none as of this morning. His breathing has improved since the bronchoscopy yesterday. He states that he still has some pain when taking a deep breath, but less than yesterday. He denies any nausea, vomiting, fever, or chills. Outpatient follow-up with pulmonary recommended.
--- NOTE | 2018-05-30 08:23 | Electrocardiograph Report ---
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
[2018-05-30 09:09] VITALS: BP 156/83
--- NOTE | 2018-05-30 11:11 | Discharge Summary ---
- NOTES TO OUTPATIENT PROVIDER Notes to Outpatient Provider: Folllow up with pulmonology as outpatient - underwent bronchoscopy hemoptysis- likely rt HTN - no evidence of diffuse alveolar Hemorrhage. -KELBY- CPAP as outpatient. - monitor BP- log. cont with losartan added HCTZ Orders not resulted at time of discharge: Pending orders 05/28/18 12:32 KAREN IgG LEONILA rflx IFA Routine CCP IgG Routine Cryoglobulin Routine MPO/PR3 (ANCA) Antibodies Routine 05/28/18 12:50 Culture,Sputum with Gram Stain [RM] Routine 05/29/18 AFB Culture, Respiratory [TB] Routine Cell Count w Diff, Body Fluid [BF] Routine Culture,Respiratory [RM] Routine Fungal Culture [MYC] Routine Herpes Simplex PCR Body Fl Routine Legionella Culture [RM] Routine Resp.Virus Panel,Body Fl Routine 05/29/18 09:56 Cytology [PTH] Routine Date of Encounter: 05/30/18 Time of Encounter: 11:07 - Discharge Diagnosis (1) Dyspnea Priority: Primary Status: Acute Qualifiers: Dyspnea type: shortness of breath Qualified Code(s): R06.02 - Shortness of breath; R06.00 - Dyspnea, unspecified; R06.01 - Orthopnea (2) Elevated troponin Priority: Secondary Status: Acute (3) Cough with hemoptysis Priority: Secondary Status: Acute (4) Hypertensive urgency Priority: Secondary Status: Acute (5) Diabetes mellitus Priority: Secondary Status: Acute Qualifiers: Diabetes mellitus type: type 2 Diabetes mellitus intermission coordinator insulin use: without fdc use Diabetes mellitus complication status: without complication Qualified Code(s): E11.9 - Type 2 diabetes mellitus without complications (6) KELBY (obstructive sleep apnea) Priority: Secondary Status: Acute Hospital course: Mr. Tripp is a 52 year old male PMH HTN DM GERD- Presented to the ED after experiencing a sudden onset of coughing while eating and producing bright blood in sputum. He also had wheezing . In the ER highly suspicious for PE -CTA completed with NO PE but did show interstial and alveolar edema . He does have hx of HTN and did not take medication for 2 days. He had suspected ST elevation on EKG and was reviewed by cardiology with no further intervention. Troponin was intially elevated but repeat troponin show flat adynamic response. He had elevated BP on presnetation Echo with EF 60% mild diastolic dysfunction No pulmonary HTN No significant valvular disease normal right ventricular structure and function. Pulmonology was consulted and the patient underwent a bronchoscopy- which suspect hemoptysis likely rt HTN heart disease Bronchoscopy without evidence of diffuse alveolar hemorrhage- BAL sent for cytology . No more hemoptysis - he does complain of pleuritic pain on inspiration Resumed patien's home losartan and added HCTZ Will have patient keep a BP log - advised patient to follow up with PCP as well as pulmonolgy He was given a prescription Losartan/HCTZ- 50/12.5 mg daily He is hemodynamically stable and ready discharge Discharge discussed with: patient - Time Spent with Patient Total time spent providing and/or coordinating discharge services: - Discharge Medications Prescriptions: Losartan/Hydrochlorothiazide [Losartan-Hctz 50-12.5 mg Tab] 1 each PO DAILY #30 tablet Home Medications: Ascorbate Calcium [Vitamin C] 500 mg PO DAILY 05/29/18 [History] Aspirin [Lo-Dose Aspirin EC] 81 mg PO DAILY 05/29/18 [History] Cyanocobalamin (Vitamin B-12) [Vitamin B-12] 1,000 mcg PO DAILY 05/29/18 [ History] Echinacea 500 mg PO DAILY 05/29/18 [History] Ranitidine HCl [Zantac 75] 75 mg PO BID 05/29/18 [History] metFORMIN [Glucophage] 500 mg PO BIDWM 05/29/18 [History] Losartan/Hydrochlorothiazide [Losartan-Hctz 50-12.5 mg Tab] 1 each PO DAILY #30 tablet 05/30/18 [Rx] Allergies/Adverse Reactions: 3 Allergy/AdvReac Type Severity Reaction Status Date / Time bee venom protein (honey bee) Allergy Anaphylaxis Verified 05/29/18 08:16 coconut AdvReac Hives Verified 05/29/18 08:16 [place] AdvReac Hives Verified 05/29/18 08:16 Date of admission: 05/28/18 08:11 Primary care physician: Grey Quispe Discharging clinician: Tiffany Wade Anticipated date of discharge: 05/30/18 - Constitutional Vitals: Temp Pulse Resp BP Pulse Ox 98.0 F 65 16 156/83 97 05/30/18 07:03 05/30/18 07:03 05/30/18 07:03 05/30/18 09:05/30/18 08:02 General appearance: Present: A&O X 3, pleasant, no acute distress, answers questions appropriately - Head Head exam: Present: atraumatic, normocephalic - Eye Eye exam: Present: PERRL, conjuntiva pink, sclera anicteric Pupils: Present: PERRL - Neck Neck exam general surgery: Present: supple, trachea midline. Absent: lymphadenopathy - Respiratory Respiratory exam: Present: CTAB. Absent: accessory muscle use, rales, rhonchi, wheezes - Cardiovascular Cardiovascular exam: Present: RRR, +S1, +S2. Absent: diastolic murmur, gallop, rubs, systolic murmur - GI/Abdominal GI/Abdominal exam: Present: normal bowel sounds, soft, no peritoneal signs. Absent: distended, tenderness - Extremities Exam Extremities exam: Present: warm, radial pulses palpable and symmetrical. Absent : calf tenderness, cyanotic, pedal edema - Neurological Exam Neurological exam: Present: CN II-XII intact, oriented X3, no focal deficits. Absent: pronater drift, facial droop, speech deficit - Skin Skin exam: Present: dry, intact - Patient Status Disposition: Home, Self-Care Condition: Fair Functional capacity at discharge: independent ambulation Overall status at discharge: patient is back to baseline - Discharge Instructions Instructions: Losartan/Hydrochlorothiazide (By mouth), Hypertension (DC), Hypertension (GEN) Follow Up With: [facility] [Provider Group] - 06/06/18 10:00 am [facility] [Outside] (Please call and make a follow up appt for 7-10 days.) - Diet and Activity Activity: increase activity as tolerated Diet: advance to your usual diet
[2018-05-30] MEDS ORDERED: hydroCHLOROthiazide 25 MG TABLET PO SCH (11:15)
[2018-05-30 11:43] LABS: Appearance of Body Fluid Cloudy (Clear); Volume of Body Fluid 15 mL
[2018-06-01 13:24] LABS: Influenza A PCR Body Fluid NOT DETECTED; Influenza B PCR Body Fluid NOT DETECTED; RVP Body Fluid Source BAL
[2018-06-02 08:44] LABS: ANA IgG by ELISA NONE DETECTED (None Detected); Myeloperoxidase Ab 0 AU/mL (0-19); Serine Protease-3 Antibody 0 AU/mL (0-19)
[2018-06-02 13:39] LABS: RSV PCR Body Fluid NOT DETECTED
[2018-06-02 15:14] LABS: HSV Source BAL
== END 2018-05-30 13:56 | disposition home or self-care (01) ==
LOC: EMEROOARM 04:32 → 3BNU 04:32
PROVIDERS: ADMIT Internal Medicine; ATTEND Internal Medicine
PROC: ENDOBRF (2018-05-29 09:10)

== ENCOUNTER 2020-04-03 01:09 | Observation (INO) ==
[2020-04-03] MEDS ORDERED: 0.9 % Sodium Chloride 500 ML IVC ONE (01:18)
[2020-04-03 01:45] LABS: Basophils % 0.6 %; Eosinophils # 0.2 K/mcL (0.0-0.6); Eosinophils % 2.9 %; Hemoglobin 14.1 g/dL (12.9-16.9); Immature Granulocytes % 0.2 % (0-4); Lymphocytes # 2.8 K/mcL (0.6-4.6); Mean Corpuscular HGB Conc 34.4 g/dL (31.6-35.5); Mean Corpuscular Hemoglobin 31.1 pg (28.0-33.3); Mean Corpuscular Volume 90.5 fL (83.0-100.0); Mean Platelet Volume 10.6 fL (9.4-12.4); Monocytes # 0.7 K/mcL (0.0-1.3); Monocytes % 10.6 %; Neutrophils # 2.8 K/mcL (1.6-8.9); Platelet Count 148 K/mcL (140-400); Red Blood Count 4.53 M/mcL (4.19-5.50); Red Cell Distribution Width 12.7 % (11.5-14.5); Segmented Neutrophils % 42.7 %; White Blood Count 6.6 K/mcL (4.3-11.1)
[2020-04-03 01:48] LABS: BUN/Creatinine Ratio 11 (6-26); Blood Urea Nitrogen 10 mg/dL (6-20); Carbon Dioxide 25 mEq/L (23-29); Chloride 103 mEq/L (98-107); Glucose 125 mg/dL (70-105); Osmolality,Calculated 287 (280-300); Potassium 3.6 mEq/L (3.5-5.1); Sodium 138 mEq/L (136-145); Troponin I < 0.03 ng/mL (< 0.04); eGFR For African Americans > 60 (> 60); eGFR For Non-African Americans > 60 (> 60)
[2020-04-03] MEDS ORDERED: Isovue-370 500 ML BOTTLE IVP ONE (01:53)
[2020-04-03] MEDS ORDERED: *HR* Labetalol 20 MG/4 ML SYRINGE IVP ONE (02:00)
[2020-04-03] MEDS: Aspirin 81 MG TAB.CHEW PO SCH ×2 (02:10→09:18)
[2020-04-03] MEDS ORDERED: Naloxone 0.4 MG/ML INJ IVP PRN (04:22)
[2020-04-03] MEDS ORDERED: *HR* Dextrose 50 % in Water (Vial) 50 ML VIAL IVP PRN (05:59)
[2020-04-03] MEDS ORDERED: D5% in Water 1,000 ML IVC PRN (05:59)
[2020-04-03] MEDS ORDERED: Dextrose Gel 15 GM/37.5 ML TUBE PO PRN ×2 (05:59)
[2020-04-03] MEDS ORDERED: Insulin LISPRO 300 UNITS/3 ML VIAL SQ SCH (06:00)
[2020-04-03] MEDS ORDERED: Regadenoson 0.4 MG/5 ML SYRINGE IVP ONE (07:46)
[2020-04-03] MEDS ORDERED: Aspirin 81 MG TAB.CHEW PO SCH (09:00)
[2020-04-03] MEDS: Insulin LISPRO 300 UNITS/3 ML VIAL SQ SCH ×2 (11:30→16:31)
[2020-04-03] MEDS ORDERED: *HR* LORazepam 2 MG/ML VIAL IVP PRN (13:11)
[2020-04-03] MEDS: *HR* Heparin 5,000 UNIT/ML VIAL SQ SCH (16:35)
[2020-04-04] MEDS ORDERED: *HR* LORazepam 2 MG/ML VIAL IVP STA (00:01)
[2020-04-04 05:05] LABS: Mean Platelet Volume 10.8 fL (9.4-12.4); Red Cell Distribution Width 12.7 % (11.5-14.5)
[2020-04-04 05:06] LABS: Hematocrit 41.7 % (37.5-50.1); Hemoglobin 14.3 g/dL (12.9-16.9); Immature Platelets 5.6 % (1.1-6.1); Mean Corpuscular HGB Conc 34.3 g/dL (31.6-35.5); Mean Corpuscular Hemoglobin 31.2 pg (28.0-33.3); Red Blood Count 4.58 M/mcL (4.19-5.50); White Blood Count 5.9 K/mcL (4.3-11.1)
[2020-04-04] MEDS: *HR* Heparin 5,000 UNIT/ML VIAL SQ SCH (05:50)
[2020-04-04] MEDS ORDERED: Regadenoson 0.4 MG/5 ML SYRINGE IVP ONE (07:24)
[2020-04-04] MEDS ORDERED: atenoloL 25 MG TABLET PO SCH (09:00)
[2020-04-04] MEDS: Aspirin 81 MG TAB.CHEW PO SCH (09:25)
[2020-04-04] MEDS: Insulin LISPRO 300 UNITS/3 ML VIAL SQ SCH ×2 (09:28→12:08)
[2020-04-04 11:21] VITALS: BP 126/83
== END 2020-04-04 13:45 | disposition home or self-care (01) ==
LOC: 3BNU 01:09 → EMEROOARM 01:09 → 3BNU 04:07
PROVIDERS: ADMIT Internal Medicine; ATTEND Internal Medicine